=== PATIENT | male | born 1965 | race Caucasian/White ===

== ENCOUNTER 2017-01-18 04:38 | Emergency (ER) | payer OTHER ==
[~2017-01-18] VITALS: Ht 175.3 cm; Wt 96.7 kg
[2017-01-18] MEDS ORDERED: TRAMADOL HCL50 MG PO (05:07)
[2017-01-18] MEDS ORDERED: AUGMENTIN875 MG PO (05:07)
[2017-01-18 05:20] VITALS: BP 171/93
== END 2017-01-18 05:22 | disposition home or self-care (01) ==
LOC: EME 04:38
DX: K04.7 Periapical abscess without sinus (principal); F17.200 Nicotine dependence, unspecified, uncomplicated
CPT/HCPCS: 99281; 99283

== ENCOUNTER 2017-08-07 15:04 | Day surgery (SDC) | payer OTHER ==
[~2017-08-07 15:04] MED LIST: AUGMENTIN875 MG PO; TRAMADOL HCL50 MG PO
[2017-08-07] MEDS ORDERED: LISINOPRIL40 MG PO (15:32)
[2017-08-07] MEDS ORDERED: AMLODIPINE BESY10 MG PO (15:32)
[2017-08-07 15:35] LABS: HEMATOCRIT 47.6 % (38.0-50.0); HEMOGLOBIN 16.9 G/DL (12.5-16.6); MCH 33.3 PG (29.0-34.0); MCHC 35.5 G/DL (30.0-36.0); MCV 93.9 FL (86-99); PLATELET COUNT 220 K/uL (156-360); RBC DIS.WIDTH-CV 12.1 % (11.8-14.6); RBC DIS.WIDTH-SD 42.1 % (39-53); RED BLOOD COUNT 5.07 M/uL (4.00-5.50)
[2017-08-07 16:29] LABS: CHLORIDE 103 MEQ/L (99-109); CREATININE 0.7 MG/DL (0.6-1.3); GFR ESTIMATE (CALCULATED) > 59 mL/min/ (58.99-99999); GLUCOSE 236 mg/dL (70-99); POTASSIUM 3.7 MEQ/L (3.7-5.4); SODIUM 136 MEQ/L (136-147); UREA NITROGEN (BUN) 14 mg/dL (9-23)
== END 2017-08-07 22:30 | disposition home or self-care (01) ==
LOC: CATH 15:04
PROVIDERS: Internal Medicine Cardiovascular Disease
DX: I25.110 Atherosclerotic heart disease of native coronary artery with unstable angina pectoris (principal); I10 Essential (primary) hypertension; Z82.49 Family history of ischemic heart disease and other diseases of the circulatory system; F17.210 Nicotine dependence, cigarettes, uncomplicated
CPT/HCPCS: 80048; 85027; C1769; C1887; J1644; J2250; J3010